=== PATIENT | female | born 1995 ===

== ENCOUNTER 2016-08-25 23:19 | Emergency (ER) | payer OTHER ==
[2016-08-26 00:59] VITALS: BMI 24.5
[2016-08-26 01:05] VITALS: TEMP 98.5
[2016-08-26] MEDS ORDERED: Sodium Chloride 0.9% 1,000 ML IV STA (01:23)
[2016-08-26 02:01] LABS: ADD MANUAL DIFF? NO
[2016-08-26 02:11] LABS: PH,URINE 6.5 (4.7-8.0); URINE BILIRUBIN MODERATE (NEGATIVE); URINE BLOOD LARGE (NEGATIVE); URINE GLUCOSE (UA) 250 mg/dL (NEGATIVE); URINE KETONE 15 mg/dL (NEGATIVE); URINE LEUKOCYTE ESTERASE MODERATE Leu/uL (NEGATIVE); URINE PROTEIN >=300 mg/dL (<30 mg/dL)
[2016-08-26 02:13] LABS: URINE APPEARANCE BLOODY (CLEAR); URINE COLOR DARK RED (YELLOW)
[2016-08-26 02:16] LABS: BASO # 0.01 K/mm3 (0.0-2.0); BASO % 0.2 % (0.0-3.0); EOS # 0.1 (0.0-0.7); EOS % 1.3 % (1.5-5.0); GRAN # 3.52 (1.4-6.5); GRAN % 56.9 % (50.0-68.0); HEMATOCRIT 26.3 % (36.0-48.0); LYMPH # 1.9 (1.2-3.4); LYMPH % 30.1 % (22.0-35.0); MEAN CELL VOLUME 80.2 fL (80.0-105.0); MEAN CORPUSCULAR HEMOGLOBIN 27.4 pg (25.0-35.0); MEAN CORPUSCULAR HGB CONC 34.2 g/dl (31.0-37.0); MEAN PLATELET VOLUME 9.2 fl (7.0-11.0); MONO # 0.7 (0.1-0.6); MONO % 11.5 % (1.0-6.0); PLATELET COUNT 252 10^3/uL (120.0-450.0); RED CELL DISTRIBUTION WIDTH 13.5 % (11.5-14.5); WHITE BLOOD COUNT 6.2 10^3/ul (4.5-11.0)
[2016-08-26 02:18] LABS: ALB/GLOB RATIO 1.2 (1.1-1.8); ALKALINE PHOSPHATASE 52 U/L (38-133); ALT/SGPT 25 U/L (7-56); AST/SGOT 30 U/L (15-39); BILIRUBIN,TOTAL 0.4 mg/dL (0.2-1.3); BLOOD UREA NITROGEN 15 mg/dL (7-21); CALCIUM 9.6 mg/dL (8.4-10.5); CARBON DIOXIDE 28 mmol/L (21-33); CHLORIDE 101 mmol/L (98-107); GFR AFRICAN-AMERICAN > 60; GLUCOSE,RANDOM 85 mg/dL (70-110); LIPASE 196 U/L (23-300); POTASSIUM 3.9 mmol/L (3.6-5.0); SODIUM 140 mmol/L (132-148); TOTAL PROTEIN 7.8 g/dL (5.8-8.3)
[2016-08-26 02:23] LABS: URINE RBC TNTC /hpf (0-2)
[2016-08-26 02:24] LABS: URINE EPITHELIAL CELLS 0 - 2 /hpf (0-5)
[2016-08-26 02:25] LABS: URINE BACTERIA MOD (NEG)
--- NOTE | 2016-08-26 02:35 | ED PDOC ---
Arrival/HPI - General Historian: Patient, Spouse - History of Present Illness Time/Duration: 1 week Symptom Onset: Gradual Symptom Course: Worsening Quality: Aching Severity Level: 5 Activities at Onset: Rest Context: Home <Samina Suazo - Last Filed: 08/26/16 02:55> <Abilio Krishnamurthy DO - Last Filed: 08/26/16 03:16> - General Chief Complaint: Medical Clearance Time Seen by Provider: 08/26/16 00:35 - History of Present Illness Narrative History of Present Illness (Text): 08/26/16 02:37 This is a 20Y Female with PMH PCOS who came in today for vaginal bleeding. She has been having heavy bleeding for the past few days. Her LMP was August 09 and lasted 3 days and was light. Her last period before that was in May. She does not take control and has been with one partner. The patient states she saw her food service manager last year for a pap smear and it was normal. She has abdominal pain, but denies fever, chills, CP, SOB, dysuria or hematuria. (Samina Suazo) Past Medical History - Provider Review Nursing Documentation Reviewed: Yes - Tetanus Immunization Tetanus Immunization: Unknown - Musculoskeletal/Rheumatological Hx Falls: Yes Hx Fractures: Yes (left Tibial [place], left ring finger) - Psychiatric Hx Substance Use: No - Surgical History Hx Orthopedic Surgery: Yes (left tibia) Other/Comment: Breast Implant, Lipposuction - Anesthesia Hx Anesthesia: Yes <Samina Suazo - Last Filed: 08/26/16 02:55> Family/Social History - Physician Review Nursing Documentation Reviewed: Yes Family/Social History: No Known Family HX Smoking Status: Never Smoked Hx Alcohol Use: No Hx Substance Use: No <Samina Suazo - Last Filed: 08/26/16 02:55> Allergies/Home Meds <Samina Suazo - Last Filed: 08/26/16 02:55> <Abilio Krishnamurthy DO - Last Filed: 08/26/16 03:16> Allergies/Adverse Reactions: Allergies No Known Allergies Allergy (Verified 08/26/16 00:58) Home Medications: Home Meds Medication Instructions Recorded Confirmed Metformin HCl [Glucophage] 850 mg PO DAILY 08/26/16 08/26/16 Review of Systems - Physician Review All systems were reviewed & negative as marked: Yes - Review of Systems Constitutional: Fatigue. absent: Weight Change, Fevers Eyes: Normal Respiratory: Normal. absent: SOB, Cough Cardiovascular: Normal. absent: Chest Pain, Palpitations, Edema Gastrointestinal: Abdominal Pain. absent: Nausea, Vomiting Genitourinary Female: Vaginal Bleeding. absent: Dysuria, Frequency, Hematuria Musculoskeletal: Normal Skin: Normal Neurological: Normal. absent: Headache, Dizziness <Samina Suazo - Last Filed: 08/26/16 02:55> Physical Exam Vital Signs Reviewed: Yes Temperature: Afebrile Blood Pressure: Normal Pulse: Regular Respiratory Rate: Normal Appearance: Positive for: Well-Appearing, Non-Toxic, Comfortable Pain Distress: None Mental Status: Positive for: Alert and Oriented X 3 - Systems Exam Head: Present: Atraumatic, Normocephalic Pupils: Present: PERRL Extroacular Muscles: Present: EOMI Conjunctiva: Present: Normal Mouth: Present: Moist Mucous Membranes Neck: Present: Normal Range of Motion Respiratory/Chest: Present: Clear to Auscultation, Good Air Exchange. No: Respiratory Distress, Accessory Muscle Use Cardiovascular: Present: Regular Rate and Rhythm, Normal S1, S2. No: Murmurs Abdomen: Present: Tenderness (suprapubic), Normal Bowel Sounds. No: Distention , Peritoneal Signs Upper Extremity: Present: Normal Inspection. No: Edema Lower Extremity: Present: Normal Inspection. No: Edema Neurological: Present: GCS=15, CN II-XII Intact, Speech Normal Skin: Present: Warm, Dry, Normal Color. No: Rashes Psychiatric: Present: Alert, Oriented x 3 <Samina Suazo - Last Filed: 08/26/16 02:55> <Abilio Krishnamurthy DO - Last Filed: 08/26/16 03:16> Vital Signs Temp Pulse Resp BP Pulse Ox 08/26/16 01:04 98.5 F 89 18 95/70 L 100 Medical Decision Making Re-evaluation Time: 02:45 Reassessment Condition: Unchanged - Lab Interpretations I have reviewed the lab results: Yes Interpretation: Abnormal lab values <Samina Suazo - Last Filed: 08/26/16 02:55> <Abilio Krishnamurthy DO - Last Filed: 08/26/16 03:16> ED Course and Treatment: 08/26/16 03:01 Impression: This is a 20Y with PMH of PCOS here for menorrhagia for the past few days. Her LMP was 2 weeks ago which lasted 3 days and was light. She has irregular periods. She last saw a food service manager 1 year ago. Differential Diagnosis: -- , UTI, dysfunctional uterine bleeding Plan: -- CBC, CMP, U/A, Urine culture -- Quantitative Hcg -- Reassess and disposition Prior Visits: Notes and results from previous visits were reviewed. Progress Note: Patient noted to have anemia and UTI. Quantitative Hcg negative. Discharge Instructions: Re-evaluation. Patient feels better. Discussed results and plan with patient who expresses understanding. All questions answered and there is agreement with the plan to discharge home with instructions. Patient stable for discharge. Return if symptoms persist or worsen. (Samina Suazo) 08/26/16 03:16 Patient seen and evaluated with resident. Agree with HPI, clinical findings, plan and treatment. Patient is a 20 year old female who presents to the emergency department complaining of vaginal bleeding for past few days. Patient also complains of mild abdominal pain. [facility] August 09. Will order labs, urine culture and Urinalysis. Patient noted to have UTI. Will discharge patient on Macrobid. Advised to present to emergency department for worsening symptoms, and follow up with OB/ Associate Dean Of Women within few days. (Abilio Krishnamurthy DO) - Lab Interpretations Lab Results: 08/26/16 01:20 08/26/16 01:20 Lab Results 08/26/16 01:20: Beta HCG, Quant < 2.39 08/26/16 01:20: Sodium 140, Potassium 3.9, Chloride 101, Carbon Dioxide 28, Anion Gap 15, BUN 15, Creatinine 0.6, Est GFR ( Amer) > 60, Est GFR (Non- Af Amer) > 60, Random Glucose 85, Calcium 9.6, Total Bilirubin 0.4, AST 30, ALT 25, Alkaline Phosphatase 52, Total Protein 7.8, Albumin 4.3, Globulin 3.5, Albumin/Globulin Ratio 1.2, Lipase 196 08/26/16 01:20: Urine Color Dark red, Urine Appearance Bloody, Urine pH 6.5, Ur Specific [place] 1.025, Urine Protein >=300 H, Urine Glucose (UA) 250 H, Urine Ketones 15 H, Urine Blood Large H, Urine Nitrate Positive H, Urine Bilirubin Moderate H, Urine Urobilinogen 4.0 H, Ur Leukocyte Esterase Moderate H, Urine RBC Tntc, Urine WBC 5 - 10, Ur Epithelial Cells 0 - 2, Urine Bacteria Mod 08/26/16 01:20: WBC 6.2 D, RBC 3.28 L, Hgb 9.0 L, Hct 26.3 L, MCV 80.2, MCH 27.4, MCHC 34.2, RDW 13.5, Plt Count 252, MPV 9.2, Gran % 56.9, Lymph % (Auto) 30.1, [place] % (Auto) 11.5 H, Eos % (Auto) 1.3 L, Baso % (Auto) 0.2, Gran # 3.52, Lymph # 1.9, [place] # 0.7 H, Eos # 0.1, Baso # 0.01 - Medication Orders Current Medication Orders: Discontinued Medications Famotidine (Pepcid) 20 mg IVP STAT STA Stop: 08/26/16 01:24 Sodium Chloride (Sodium Chloride 0.9%) 1,000 mls @ 1,000 mls/hr IV .Q1H STA Stop: 08/26/16 02:22 Ondansetron HCl (Zofran Inj) 4 mg IVP STAT STA Stop: 08/26/16 01:24 <Samina Suazo - Last Filed: 08/26/16 02:55> - PA / GRAIN ELEVATOR AGENT / Resident Statement DESTINEY has reviewed & agrees with the documentation as recorded. DESTINEY has examined the patient and agrees with the treatment plan. <Abilio Krishnamurthy DO - Last Filed: 08/26/16 03:16> - Scribe Statement Mara Santana Provider Scribe Attestation: All medical record entries made by the Scribe were at my direction and personally dictated by me. I have reviewed the chart and agree that the record accurately reflects my personal performance of the history, physical exam, medical decision making, and the department course for this patient. I have also personally directed, reviewed, and agree with the discharge instructions and disposition. (Abilio Krishnamurthy DO) Disposition/Present on Arrival - Present on Arrival Any Indicators Present on Arrival: No History of DVT/PE: No History of Uncontrolled Diabetes: No Urinary Catheter: No History of Decub. Ulcer: No History Surgical Site Infection Following: None - Disposition Have Diagnosis and Disposition been Completed?: Yes Disposition Time: 03:00 Patient Plan: Discharge <Samina Suazo - Last Filed: 08/26/16 02:55> <Abilio Krishnamurthy DO - Last Filed: 08/26/16 03:16> - Disposition Diagnosis: UTI (urinary tract infection), Dysfunctional uterine bleeding Disposition: HOME/ ROUTINE Condition: FAIR Discharge Instructions (ExitCare): Dysfunctional Uterine Bleeding (ED), Urinary Tract Infection in Women (DC) Print Language: LITHUANIAN Additional Instructions: Ms. Sims, thank you for letting us take care of you today. Your provider was Dr. Suazo. You were treated for UTI and dysfunctional uterine bleeding. The emergency medical care you received today was directed at your acute symptoms. If you were prescribed any medication, please fill it and take as directed. It may take several days for your symptoms to resolve. Return to the Emergency Department if your symptoms worsen, do not improve, or if you have any other problems. Please contact your doctor or call one of the physicians/clinics you have been referred to that are listed on the Patient Visit Information form that is included in your discharge packet. Bring any paperwork you were given at discharge with you along with any medications you are taking to your follow up visit. Our treatment cannot replace ongoing medical care by a primary care provider (PCP) outside of the emergency department. Thank you for allowing the [facility] team to be part of your care today. Please follow up with PMD and knowledge analyst within 1 week. Take iron pill daily. Use stool softener if constipated. Prescriptions: Ferrous Sulfate [Feosol] 325 mg PO DAILY #10 tab Nitrofurantoin Macrocrystals [Macrobid] 100 mg PO BID #14 cap Referrals: Raymundo Cunha, [Primary Care Provider] - Follow up with primary
[2016-08-26 03:19] VITALS: BP 112/74; PULSE 84; RESP 17; O2SAT 99
== END 2016-08-26 03:20 | disposition home or self-care (01) ==
LOC: ED 23:19
DX: N93.8 Other specified abnormal uterine and vaginal bleeding (principal); N39.0 Urinary tract infection, site not specified; E28.2 Polycystic ovarian syndrome

== ENCOUNTER 2016-09-07 03:27 | Emergency (ER) | payer OTHER ==
[2016-09-07 03:39] VITALS: BMI 22.6
--- NOTE | 2016-09-07 04:36 | ED PDOC ---
Arrival/HPI - General Chief Complaint: Back Pain Time Seen by Provider: 09/07/16 03:37 Historian: Patient - History of Present Illness Narrative History of Present Illness (Text): 09/07/16 04:35 Linda Sims is a 20 year old female who presents to the Emergency department complaining of right lower back pain since yesterday afternoon. Patient states she took Percocet she had left over from a previous surgery with some relief. Patient denies any dysuria, hematuria, urinary frequency, Patient also reports she some rectal discomfort secondary to hemorrhoid and applied over -the-counter topical ointment. Patient denies any saddle paresthesias, weakness in lower extremities, fever, chills, nausea, vomiting, diarrhea, headache, dizziness, or any other complaints. Time/Duration: Other (yesterday) Symptom Onset: Gradual Symptom Course: Unchanged Activities at Onset: Rest, Light Context: Home Past Medical History - Provider Review Nursing Documentation Reviewed: Yes - Tetanus Immunization Tetanus Immunization: Unknown - Musculoskeletal/Rheumatological Hx Falls: Yes Hx Fractures: Yes (left Tibial [place], left ring finger) - Psychiatric Hx Substance Use: No - Surgical History Hx Orthopedic Surgery: Yes (left tibia) Other/Comment: Breast Implant, Lipposuction - Anesthesia Hx Anesthesia: Yes Family/Social History - Physician Review Nursing Documentation Reviewed: Yes Family/Social History: No Known Family HX Smoking Status: Never Smoked Hx Alcohol Use: No Hx Substance Use: No Allergies/Home Meds Allergies/Adverse Reactions: Allergies No Known Allergies Allergy (Verified 08/26/16 00:58) Home Medications: Home Meds Medication Instructions Recorded Confirmed oxyCODONE/Acetaminophen [Percocet 1 tab PO Q4H PRN 09/07/16 09/07/16 5/325 mg Tab] Review of Systems - Physician Review All systems were reviewed & negative as marked: Yes - Review of Systems Constitutional: Normal. absent: Fevers Eyes: Normal ENT: Normal Respiratory: Normal. absent: SOB, Cough Cardiovascular: Normal. absent: Chest Pain Gastrointestinal: Normal. absent: Abdominal Pain, Diarrhea, Nausea, Vomiting Genitourinary Female: Other (+hemorrhoid) Musculoskeletal: Back Pain Skin: Normal. absent: Rash Neurological: Normal. absent: Headache, Dizziness Endocrine: Normal Hemo/Lymphatic: Normal Psychiatric: Normal Physical Exam Vital Signs Reviewed: Yes Vital Signs Temp Pulse Resp BP Pulse Ox 09/07/16 07:05 98 F 72 20 118/71 99 09/07/16 05:32 71 16 111/68 100 09/07/16 03:39 98.6 F 69 16 121/76 100 Temperature: Afebrile Blood Pressure: Normal Pulse: Regular Respiratory Rate: Normal Appearance: Positive for: Well-Appearing, Non-Toxic, Comfortable Pain Distress: None Mental Status: Positive for: Alert and Oriented X 3 - Systems Exam Head: Present: Atraumatic, Normocephalic Pupils: Present: PERRL Extroacular Muscles: Present: EOMI Conjunctiva: Present: Normal Mouth: Present: Moist Mucous Membranes Neck: Present: Normal Range of Motion Respiratory/Chest: Present: Clear to Auscultation, Good Air Exchange. No: Respiratory Distress, Accessory Muscle Use Cardiovascular: Present: Regular Rate and Rhythm, Normal S1, S2. No: Murmurs Abdomen: Present: Normal Bowel Sounds. No: Tenderness, Distention, Peritoneal Signs Rectal: Present: Hemorrhoids (Small, non-thrombosed hemorrhoid), Other (Scribe Randee present as clam digger) Back: Present: Normal Inspection. No: CVA Tenderness, Midline Tenderness, Paraspinal Tenderness Upper Extremity: Present: Normal Inspection. No: Cyanosis, Edema Lower Extremity: Present: Normal Inspection. No: Edema Neurological: Present: GCS=15, CN II-XII Intact, Speech Normal Skin: Present: Warm, Dry, Normal Color. No: Rashes Psychiatric: Present: Alert, Oriented x 3, Normal Insight, Normal Concentration Medical Decision Making ED Course and Treatment: 09/07/16 04:35 Impression: 20 year old female complaining of right lower back pain since yesterday. Plan: -- CT Abdomen and Pelvis -- Labs -- UA -- IV fluids -- Reassess and disposition Prior Visits: Notes and results from previous visits were review - Lab Interpretations Lab Results: 09/07/16 05:25 09/07/16 05:25 Lab Results 09/07/16 05:25: WBC 9.4 D, RBC 3.43 L, Hgb 9.1 L, Hct 28.2 L, MCV 82.2, MCH 26.5, MCHC 32.3, RDW 14.4, Plt Count 354, MPV 8.8 09/07/16 05:25: Sodium 138, Potassium 4.4, Chloride 105, Carbon Dioxide 26, Anion Gap 11, BUN 12, Creatinine 0.5, Est GFR ( Amer) > 60, Est GFR (Non- Af Amer) > 60, Random Glucose 96, Calcium 9.5, Total Bilirubin 0.3, AST 23, ALT 25, Alkaline Phosphatase 67, Total Protein 7.5, Albumin 4.5, Globulin 3.1, Albumin/Globulin Ratio 1.5 09/07/16 04:10: Urine Color Yellow, Urine Appearance Sl cloudy, Urine pH 6.0, Ur Specific [place] >= 1.030, Urine Protein 100 H, Urine Glucose (UA) Negative, Urine Ketones Negative, Urine Blood Large H, Urine Nitrate Negative, Urine Bilirubin Negative, Urine Urobilinogen 1.0 H, Ur Leukocyte Esterase Negative, Urine RBC 2 - 5, Urine WBC 0 - 2, Ur Epithelial Cells 3 - 4, Urine Bacteria Rare I have reviewed the lab results: Yes - RAD Interpretation Narrative RAD Interpretations (Text): 09/07/16 06:58 CT Abd/Pelvis-IMPRESSION: - 3 mm obstructing stone in the right proximal to mid ureter. - Otherwise, no evidence of significant acute process, allowing for motion artifact. - See above for remaining findings Radiology Orders: 09/07/16 05:23 ABD & PELVIS W/O PO OR IV CONT [CT] Stat Telemarketing Representative: Radiologist - Medication Orders Current Medication Orders: Discontinued Medications Sodium Chloride (Sodium Chloride 0.9%) 1,000 mls @ 999 mls/hr IV .Q1H1M STA Stop: 09/07/16 06:24 Last Admin: 09/07/16 05:33 Dose: 999 mls/hr - Scribe Statement The provider has reviewed the documentation as recorded by the Scribe Randee Olson All medical record entries made by the Scribe were at my direction and personally dictated by me. I have reviewed the chart and agree that the record accurately reflects my personal performance of the history, physical exam, medical decision making, and the department course for this patient. I have also personally directed, reviewed, and agree with the discharge instructions and disposition. Disposition/Present on Arrival - Present on Arrival Any Indicators Present on Arrival: No History of DVT/PE: No History of Uncontrolled Diabetes: No Urinary Catheter: No History of Decub. Ulcer: No History Surgical Site Infection Following: None - Disposition Have Diagnosis and Disposition been Completed?: Yes Diagnosis: Nephrolithiasis, Renal colic Disposition: HOME/ ROUTINE Disposition Time: 07:03 Patient Plan: Discharge Condition: STABLE Discharge Instructions (ExitCare): Kidney Stones (ED), Renal Colic (ED) Print Language: KINYARWANDA Additional Instructions: Drink plenty of fluids/Take meds as prescribed/follow up with the urologist this week/any recurrent persistent pain return to the emergency room Prescriptions: oxyCODONE/Acetaminophen [Percocet 5/325 mg Tab] 1 ea PO Q6 PRN #16 tab PRN Reason: Pain, Moderate (4-7) Referrals: Walter Aquino MD [Staff Provider] - Follow up with primary
[2016-09-07 04:40] LABS: URINE BILIRUBIN NEGATIVE (NEGATIVE); URINE BLOOD LARGE (NEGATIVE); URINE GLUCOSE (UA) NEGATIVE (NEGATIVE); URINE KETONE NEGATIVE (NEGATIVE); URINE LEUKOCYTE ESTERASE NEGATIVE Leu/uL (NEGATIVE); URINE PROTEIN 100 mg/dL (<30 mg/dL)
[2016-09-07 04:59] LABS: URINE APPEARANCE SL CLOUDY (CLEAR); URINE COLOR YELLOW (YELLOW)
[2016-09-07 05:11] LABS: URINE BACTERIA RARE (NEG); URINE WBC 0 - 2 /hpf (0-6)
[2016-09-07] MEDS ORDERED: Sodium Chloride 0.9% 1,000 ML IV STA (05:24)
[2016-09-07 05:40] LABS: HEMATOCRIT 28.2 % (36.0-48.0); MEAN CELL VOLUME 82.2 fL (80.0-105.0); MEAN CORPUSCULAR HEMOGLOBIN 26.5 pg (25.0-35.0); MEAN CORPUSCULAR HGB CONC 32.3 g/dl (31.0-37.0); MEAN PLATELET VOLUME 8.8 fl (7.0-11.0); RED CELL DISTRIBUTION WIDTH 14.4 % (11.5-14.5); WHITE BLOOD COUNT 9.4 10^3/ul (4.5-11.0)
[2016-09-07 05:53] LABS: ALB/GLOB RATIO 1.5 (1.1-1.8); ALKALINE PHOSPHATASE 67 U/L (38-133); ALT/SGPT 25 U/L (7-56); AST/SGOT 23 U/L (15-39); BILIRUBIN,TOTAL 0.3 mg/dL (0.2-1.3); BLOOD UREA NITROGEN 12 mg/dL (7-21); CALCIUM 9.5 mg/dL (8.4-10.5); CARBON DIOXIDE 26 mmol/L (21-33); CHLORIDE 105 mmol/L (95-110); GFR AFRICAN-AMERICAN > 60; GLUCOSE,RANDOM 96 mg/dL (70-110); POTASSIUM 4.4 mmol/L (3.6-5.0); SODIUM 138 mmol/L (132-148); TOTAL PROTEIN 7.5 g/dL (5.8-8.3)
--- NOTE | 2016-09-07 06:34 | CT ---
EXAM: CT Abdomen and Pelvis Without Intravenous Contrast CLINICAL HISTORY: 20 years old, female; Pain; Abdominal pain; Flank; Right; Additional info: Right flank pain TECHNIQUE: Axial computed tomography images of the abdomen and pelvis without intravenous contrast. This CT exam was performed using one or more of the following dose reduction techniques: automated exposure control, adjustment of the mA and/or kV according to patient size, and/or use of iterative reconstruction technique. Coronal and sagittal reformatted images were created and reviewed. EXAM DATE/TIME: 09/07/2016 5:23 AM COMPARISON: No relevant prior studies available. FINDINGS: LIMITATIONS: Exam is limited by mild to moderate streak/motion artifact. LOWER THORAX: No infiltrate seen in the lung bases. ABDOMEN: LIVER: No acute abnormality of the liver identified. GALLBLADDER AND BILE DUCTS: No CT evidence of acute cholecystitis. No evidence of significant biliary ductal dilatation. PANCREAS: No CT evidence of acute pancreatitis. SPLEEN: No acute abnormality of the spleen identified. ADRENALS: No acute abnormality of the adrenal glands identified. KIDNEYS AND URETERS: 3 mm obstructing stone in the right proximal to mid ureter, image 44/series [id number], causing mild right hydroureteronephrosis. Tiny, nonobstructing right renal stone. STOMACH AND BOWEL: No acute abnormality of the bowel is identified, allowing for motion artifact. No evidence of bowel obstruction. No evidence of duran colitis. APPENDIX: Appendix is seen, and is within normal limits in appearance. PELVIS: BLADDER: No acute abnormality of the bladder identified. REPRODUCTIVE:No acute abnormality of the reproductive organs is seen. No acute abnormality of the uterus identified. No evidence of large adnexal masses. ABDOMEN and PELVIS: INTRAPERITONEAL SPACE: Small amount of free fluid in the cul-de-sac. This is most likely physiologic in nature. No evidence of free intraperitoneal air and. BONES/JOINTS: No acute fractures or other acute bony abnormality noted. SOFT TISSUES: Findings in the abdominal wall soft tissues diffusely which are most likely due to postsurgical scarring, possibly from prior abdominoplasty. Recommend clinical correlation. VASCULATURE: No evidence of abdominal aortic aneurysm. No evidence of periaortic hemorrhage. LYMPH NODES: No evidence of diffuse lymphadenopathy. IMPRESSION: - 3 mm obstructing stone in the right proximal to mid ureter. - Otherwise, no evidence of significant acute process, allowing for motion artifact. - See above for remaining findings.
[2016-09-07 07:06] VITALS: BP 118/71; PULSE 72; RESP 20; TEMP 98; O2SAT 99
== END 2016-09-07 07:08 | disposition home or self-care (01) ==
LOC: ED 03:27
DX: M54.5 Low back pain (principal); N23 Unspecified renal colic; N20.0 Calculus of kidney
CPT/HCPCS: 74176; 80053; 81001; 85027; 87086; 96360; 99283; J7040

== ENCOUNTER 2016-11-11 21:22 | Emergency (ER) | payer OTHER ==
[2016-11-11 22:11] VITALS: BMI 23.9
[2016-11-11 22:15] VITALS: BP 107/67; PULSE 96; RESP 15; TEMP 99.6; O2SAT 100
[2016-11-11] MEDS ORDERED: Sodium Chloride 0.9% 1,000 ML IV STA (23:01)
--- NOTE | 2016-11-11 23:21 | ED PDOC ---
Arrival/HPI - General Chief Complaint: Abdominal Pain Time Seen by Provider: 11/11/16 22:21 Historian: Patient - History of Present Illness Narrative History of Present Illness (Text): 11/11/16 23:17 A 21 year old female presents to the emergency department complaining of left sided abdominal pain for the past two weeks. Patient reports taking Tylenol. Reports nausea and watery, non-bloody diarrhea two times a day for the past two weeks and subjective fever since yesterday but denies any other complaints at this time. Denies any recent travels. Symptom Onset: Sudden Symptom Course: Unchanged Activities at Onset: Rest Context: Home Past Medical History - Provider Review Nursing Documentation Reviewed: Yes - Tetanus Immunization Tetanus Immunization: Unknown - Cardiac Hx Cardiac Disorders: No - Pulmonary Hx Respiratory Disorders: No - Neurological Hx Neurological Disorder: No - HEENT Hx HEENT Disorder: No - Renal Hx Renal Disorder: No - Endocrine/Metabolic Hx Endocrine Disorders: No - Hematological/Oncological Hx Blood Disorders: No - Integumentary Hx Dermatological Disorder: No - Musculoskeletal/Rheumatological Hx Falls: Yes Hx Fractures: Yes (left Tibial [place], left ring finger) - Gastrointestinal Hx Gastrointestinal Disorders: No - Genitourinary/Gynecological Other/Comment: polycystic ovary - Psychiatric Hx Psychophysiologic Disorder: No Hx Substance Use: No - Surgical History Hx Orthopedic Surgery: Yes (left tibia) Other/Comment: Breast Implant, Lipposuction - Anesthesia Hx Anesthesia: Yes Hx Anesthesia Reactions: No Hx Malignant Hyperthermia: No Family/Social History - Physician Review Nursing Documentation Reviewed: Yes Family/Social History: No Known Family HX Smoking Status: Never Smoked Hx Alcohol Use: No Hx Substance Use: No Allergies/Home Meds Allergies/Adverse Reactions: Allergies No Known Allergies Allergy (Verified 11/11/16 22:11) Home Medications: Home Meds Medication Instructions Recorded Confirmed metFORMIN [glucOPHAGE] 500 mg PO DAILY 11/11/16 11/11/16 Review of Systems - Physician Review All systems were reviewed & negative as marked: Yes - Review of Systems Constitutional: Fevers (subjective) Gastrointestinal: Abdominal Pain, Diarrhea, Nausea. absent: Vomiting Physical Exam Vital Signs Reviewed: Yes Vital Signs Temp Pulse Resp BP Pulse Ox 11/11/16 22:14 99.6 F 96 H 15 107/67 100 Temperature: Afebrile Blood Pressure: Normal Pulse: Regular Respiratory Rate: Normal Appearance: Positive for: Well-Appearing, Non-Toxic, Comfortable Pain Distress: None Mental Status: Positive for: Alert and Oriented X 3 - Systems Exam Head: Present: Atraumatic, Normocephalic Pupils: Present: PERRL Extroacular Muscles: Present: EOMI Conjunctiva: Present: Normal Mouth: Present: Moist Mucous Membranes Neck: Present: Normal Range of Motion Respiratory/Chest: Present: Clear to Auscultation, Good Air Exchange. No: Respiratory Distress, Accessory Muscle Use Cardiovascular: Present: Regular Rate and Rhythm, Normal S1, S2. No: Murmurs Abdomen: Present: Tenderness (left sided), Normal Bowel Sounds. No: Distention , Peritoneal Signs Back: Present: Normal Inspection Upper Extremity: Present: Normal Inspection. No: Cyanosis, Edema Lower Extremity: Present: Normal Inspection. No: Edema Neurological: Present: GCS=15, CN II-XII Intact, Speech Normal Skin: Present: Warm, Dry, Normal Color. No: Rashes Psychiatric: Present: Alert, Oriented x 3, Normal Insight, Normal Concentration Medical Decision Making ED Course and Treatment: 11/12/16 01:22 the pt reports feeing better and says her pain is completely gone. she is sitting up, appears well, no distress. I disc w her results, plan for rx, f/u, and rtr. she v/u and agrees w plan. all questions and concerned addressed at this time. - Lab Interpretations Lab Results: 11/12/16 00:05 11/12/16 00:05 Lab Results 11/12/16 00:05: WBC 10.4, RBC 4.62, Hgb 10.4 L, Hct 33.3 L, MCV 72.1 L, MCH 22.5 L, MCHC 31.2, RDW 16.4 H, Plt Count 216, MPV 8.9, Gran % 80.3 H, Lymph % ( Auto) 10.7 L, Bartholomew % (Auto) 8.7 H, Eos % (Auto) 0.2 L, Baso % (Auto) 0.1, Gran # 8.36 H, Lymph # 1.1 L, Bartholomew # 0.9 H, Eos # 0.0, Baso # 0.01 11/12/16 00:05: Sodium 142, Potassium 3.8, Chloride 103, Carbon Dioxide 25, Anion Gap 18, BUN 13, Creatinine 0.6, Est GFR ( Amer) > 60, Est GFR (Non- Af Amer) > 60, Random Glucose 78, Calcium 10.0, Total Bilirubin 0.6, AST 33, ALT 22, Alkaline Phosphatase 100, Total Protein 9.1 H, Albumin 5.1 H, Globulin 4.0, Albumin/Globulin Ratio 1.3, Lipase 160 11/11/16 23:05: Urine Color Yellow, Urine Appearance Clear, Urine pH 6.0, Ur Specific [place] >= 1.030, Urine Protein Negative, Urine Glucose (UA) Negative, Urine Ketones 40 H, Urine Blood Trace-lysed H, Urine Nitrate Negative, Urine Bilirubin Negative, Urine Urobilinogen 0.2, Ur Leukocyte Esterase Negative, Urine RBC 1 - 3, Urine WBC 1 - 3, Ur Epithelial Cells 6 - 8, Urine HCG, Qual Negative I have reviewed the lab results: Yes - Medication Orders Current Medication Orders: Discontinued Medications Sodium Chloride (Sodium Chloride 0.9%) 1,000 mls @ 999 mls/hr IV .Q1H1M STA Stop: 11/12/16 00:01 Last Admin: 11/12/16 00:08 Dose: 999 mls/hr Ketorolac Tromethamine (Toradol) 10 mg IVP STAT STA Stop: 11/11/16 23:02 Last Admin: 11/12/16 00:08 Dose: 10 mg Ondansetron HCl (Zofran Inj) 4 mg IVP ONCE ONE Stop: 11/11/16 23:02 Last Admin: 11/12/16 00:08 Dose: 4 mg - Scribe Statement The provider has reviewed the documentation as recorded by the Lillie Ashford Provider Scribe Attestation: All medical record entries made by the Lillie were at my direction and personally dictated by me. I have reviewed the chart and agree that the record accurately reflects my personal performance of the history, physical exam, medical decision making, and the department course for this patient. I have also personally directed, reviewed, and agree with the discharge instructions and disposition. Disposition/Present on Arrival - Present on Arrival Any Indicators Present on Arrival: No History of DVT/PE: No History of Uncontrolled Diabetes: No Urinary Catheter: No History of Decub. Ulcer: No History Surgical Site Infection Following: None - Disposition Have Diagnosis and Disposition been Completed?: Yes Diagnosis: Diarrhea Disposition: HOME/ ROUTINE Disposition Time: 01:23 Condition: IMPROVED Forms: [employer] (Citizen [place])
[2016-11-11 23:32] LABS: URINE BILIRUBIN NEGATIVE (NEGATIVE); URINE BLOOD TRACE-LYSED (NEGATIVE); URINE GLUCOSE (UA) NEGATIVE (NEGATIVE); URINE LEUKOCYTE ESTERASE NEGATIVE Leu/uL (NEGATIVE); URINE NITRATE NEGATIVE (NEGATIVE); URINE PROTEIN NEGATIVE mg/dL (<30 mg/dL); URINE UROBILINOGEN 0.2 E.U./dL (<1 E.U./dL)
[2016-11-12 00:16] LABS: URINE APPEARANCE CLEAR (CLEAR); URINE COLOR YELLOW (YELLOW)
[2016-11-12 00:17] LABS: HCG,QUALITATIVE URINE NEGATIVE (NEGATIVE)
[2016-11-12 00:22] LABS: BASO # 0.01 K/mm3 (0.0-2.0); BASO % 0.1 % (0.0-3.0); EOS % 0.2 % (1.5-5.0); GRAN # 8.36 (1.4-6.5); GRAN % 80.3 % (50.0-68.0); HEMOGLOBIN 10.4 gm/dL (12.0-16.0); LYMPH # 1.1 (1.2-3.4); LYMPH % 10.7 % (22.0-35.0); MEAN CELL VOLUME 72.1 fL (80.0-105.0); MEAN CORPUSCULAR HEMOGLOBIN 22.5 pg (25.0-35.0); MEAN CORPUSCULAR HGB CONC 31.2 g/dl (31.0-37.0); MEAN PLATELET VOLUME 8.9 fl (7.0-11.0); MONO # 0.9 (0.1-0.6); MONO % 8.7 % (1.0-6.0); PLATELET COUNT 216 10^3/uL (120.0-450.0); RBC 4.62 10^6/uL (3.5-6.1); RED CELL DISTRIBUTION WIDTH 16.4 % (11.5-14.5); WHITE BLOOD COUNT 10.4 10^3/ul (4.5-11.0)
[2016-11-12 00:37] LABS: ALB/GLOB RATIO 1.3 (1.1-1.8); ALBUMIN 5.1 g/dL (3.0-4.8); AST/SGOT 33 U/L (15-39); BLOOD UREA NITROGEN 13 mg/dL (7-21); GFR AFRICAN-AMERICAN > 60; GFR NON-AFRICAN AMERICAN > 60
[2016-11-12 01:02] LABS: ALT/SGPT 22 U/L (7-56); LIPASE 160 U/L (23-300)
== END 2016-11-12 01:30 | disposition home or self-care (01) ==
LOC: ED 21:22
DX: R19.7 Diarrhea, unspecified (principal)
CPT/HCPCS: 80053; 81001; 83690; 84703; 85025; 96361; 96374; 96375; 99283; J1885; J2405; J7040

== ENCOUNTER 2017-05-12 17:53 | Emergency (ER) | payer OTHER ==
[2017-05-12 17:53] VITALS: BMI 23.9
--- NOTE | 2017-05-12 18:08 | ED PDOC ---
"Arrival/HPI - General Time Seen by Provider: 05/12/17 18:07 Historian: Patient - History of Present Illness Narrative History of Present Illness (Text): 05/12/17 18:08 21 y/o female, pmh including renal stone/polycystitis ovarian syndome, nkda, c/ o bilateral breast pain x 2 weeks with no fall or trauma. Pt. stated that she has pain when touching the both breast, no nipple discharge, not breast feeding , had implant in [facility] [employer] about 3.5 years ago, no fever or chills, no night sweat, no other medical or psychological complaints. Past Medical History - Provider Review Nursing Documentation Reviewed: Yes - Tetanus Immunization Tetanus Immunization: Unknown - Cardiac Hx Cardiac Disorders: No - Pulmonary Hx Respiratory Disorders: No - Neurological Hx Neurological Disorder: No - HEENT Hx HEENT Disorder: No - Renal Hx Renal Disorder: No - Endocrine/Metabolic Hx Endocrine Disorders: No - Hematological/Oncological Hx Blood Disorders: No - Integumentary Hx Dermatological Disorder: No - Musculoskeletal/Rheumatological Hx Falls: Yes Hx Fractures: Yes (left Tibial [place], left ring finger) - Gastrointestinal Hx Gastrointestinal Disorders: No - Genitourinary/Gynecological Other/Comment: polycystic ovary - Psychiatric Hx Psychophysiologic Disorder: No Hx Substance Use: No - Surgical History Hx Orthopedic Surgery: Yes (left tibia) Other/Comment: Breast Implant, Lipposuction - Anesthesia Hx Anesthesia: Yes Hx Anesthesia Reactions: No Hx Malignant Hyperthermia: No Family/Social History - Physician Review Nursing Documentation Reviewed: Yes Family/Social History: Unknown Family HX Smoking Status: Never Smoked Hx Alcohol Use: No Hx Substance Use: No Allergies/Home Meds Allergies/Adverse Reactions: Allergies No Known Allergies Allergy (Verified 05/12/17 18:02) Review of Systems - Review of Systems Constitutional: absent: Fatigue, Fevers Eyes: absent: Vision Changes ENT: absent: Hearing Changes Respiratory: absent: SOB, Cough Cardiovascular: absent: Chest Pain Gastrointestinal: absent: Abdominal Pain, Nausea, Vomiting Musculoskeletal: absent: Arthralgias, Back Pain Skin: absent: Rash, Pruritis Neurological: absent: Headache, Dizziness Psychiatric: absent: Anxiety, Depression, Suicidal Ideation Physical Exam Vital Signs Reviewed: Yes Vital Signs Temp Pulse Resp BP Pulse Ox 05/12/17 18:05 98.7 F 80 18 114/78 100 Temperature: Afebrile Blood Pressure: Normal Pulse: Regular Respiratory Rate: Normal Appearance: Positive for: Well-Appearing, Non-Toxic, Comfortable Pain Distress: Mild Mental Status: Positive for: Alert and Oriented X 3 - Systems Exam Head: Present: Atraumatic, Normocephalic Pupils: Present: PERRL Extroacular Muscles: Present: EOMI Conjunctiva: Present: Normal Mouth: Present: Moist Mucous Membranes Pharnyx: No: ERYTHEMA, EXUDATE, TONSILS ENLARGED Nose (Internal): Present: Normal Inspection, No Active Bleeding. No: Rhinorrhea Neck: Present: Normal Range of Motion Respiratory/Chest: Present: Clear to Auscultation, Good Air Exchange. No: Respiratory Distress, Accessory Muscle Use Cardiovascular: Present: Regular Rate and Rhythm, Normal S1, S2. No: Murmurs Abdomen: Present: Normal Bowel Sounds. No: Tenderness, Distention, Peritoneal Signs Breast/Axillary: Present: Other (No nipple inversion. 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 No: Axillary Lymphad, Discoloration, Erythema, Fluctuance, Masses, Nipple Discharge , Swelling, Symmetrical Back: Present: Normal Inspection Upper Extremity: Present: Normal Inspection. No: Cyanosis, Edema Lower Extremity: Present: Normal Inspection. No: Edema Neurological: Present: GCS=15, CN II-XII Intact, Speech Normal Skin: Present: Warm, Dry, Normal Color. No: Rashes Psychiatric: Present: Alert, Oriented x 3, Normal Insight, Normal Concentration Medical Decision Making ED Course and Treatment: 05/12/17 18:22 -Breast sonogram -Toradol IM -Observe and reassess 05/13/17 00:18 -Pain resolved. -Bilateral breast sonogram show no signs of malignancy -Pain resolved, advised to have outpatient obgyn and pmd follow up -Discharge home with naproxen, bed rest, follow up with your own pmd and obgyn within 2 days, return to the ER for any new or worsening signs or symptoms. - RAD Interpretation Radiology Orders: 05/12/17 18:19 BREAST BILATERAL [US] Stat FINDINGS: Solid nodules: None. Cystic masses: None. Architectural distortion: None. Acoustical shadowing: None. Skin thickening: None. Axillary adenopathy: None. Other findings: Implant. IMPRESSION: No sonographic evidence of malignancy. EXAM: US Left Breast, Complete CLINICAL HISTORY: 21 years old, female; Pain; Breast pain; Bilateral; Patient HX: Pt has b/l breast implants; Additional info: Bilateral breast pain x 2weeks BRENT BULLOCK | Final Radiology Report CONFIDENTIALITY STATEMENT This report is intended only for use by the referring physician, and only in accordance with law. If you received this in error, call [phone]. Page 2 of 2 TECHNIQUE: Complete real time ultrasound of all four quadrants of the left breast and the retroareolar region, including ultrasound of the axilla when performed. COMPARISON: No relevant prior studies available. FINDINGS: Solid nodules: None. Cystic masses: None. Architectural distortion: None. Acoustical shadowing: None. Skin thickening: None. Axillary adenopathy: None. Other findings: Implant. IMPRESSION: No sonographic evidence of malignancy. Thank you for allowing us to participate in the care of your patient. Dictated and Authenticated by: Alexis Anderson MD 05/13/2017 12:15 AM Eastern Time ([place] & [place]) Fitness Coordinator: Radiologist - Medication Orders Current Medication Orders: Discontinued Medications Ketorolac Tromethamine (Toradol) 60 mg IM STAT STA Stop: 05/12/17 18:55 Last Admin: 05/12/17 19:34 Dose: 60 mg MAR Pain Assessment Document 05/12/17 19:34 SS (Rec: 05/12/17 19:34 SS [id number]) Pain Reassessment Is this a pain reassessment? No Sleep Is patient sleeping during reassessment? No Presence of Pain Presence of Pain Yes Location Pain Location Body Site Breast IM Administration Charges Document 05/12/17 19:34 SS (Rec: 05/12/17 19:34 SS [id number]) Charges for Administration # of IM Administrations 1 - PA / ACID CHANGER / Resident Statement MD/DO has reviewed & agrees with the documentation as recorded. Disposition/Present on Arrival - Present on Arrival Any Indicators Present on Arrival: No History of DVT/PE: No History of Uncontrolled Diabetes: No Urinary Catheter: No History of Decub. Ulcer: No History Surgical Site Infection Following: None - Disposition Have Diagnosis and Disposition been Completed?: Yes Diagnosis: Breast pain Disposition: HOME/ ROUTINE Disposition Time: 00:19 Patient Plan: Discharge Condition: IMPROVED Discharge Instructions (ExitCare): Breast Care for the Non-breast Feeding Woman (ED) Print Language: HEBREW Additional Instructions: -Discharge home with naproxen, bed rest, follow up with your own pmd and obgyn within 2 days, return to the ER for any new or worsening signs or symptoms. Prescriptions: Naproxen 500 mg PO BID PRN #20 tab PRN Reason: Other Referrals: Salvatore Dey Jr., MD [Primary Care Provider] - Follow up with primary Valorie Zavala MD [Medical Doctor] - Follow up with primary Forms: WORK NOTE"
[2017-05-12 18:10] VITALS: BP 114/78; PULSE 80; RESP 18; TEMP 98.7; O2SAT 100
--- NOTE | 2017-05-13 00:15 | US ---
EXAM: US Right Breast, Complete CLINICAL HISTORY: 21 years old, female; Pain; Breast pain; Bilateral; Patient HX: Pt has b/l breast implants; Additional info: Bilateral breast pain x 2weeks TECHNIQUE: Complete real time ultrasound of all four quadrants of the right breast and the retroareolar region, including ultrasound of the axilla when performed. COMPARISON: No relevant prior studies available. FINDINGS: Solid nodules: None. Cystic masses: None. Architectural distortion: None. Acoustical shadowing: None. Skin thickening: None. Axillary adenopathy: None. Other findings: Implant. IMPRESSION: No sonographic evidence of malignancy. EXAM: US Left Breast, Complete CLINICAL HISTORY: 21 years old, female; Pain; Breast pain; Bilateral; Patient HX: Pt has b/l breast implants; Additional info: Bilateral breast pain x 2weeks TECHNIQUE: Complete real time ultrasound of all four quadrants of the left breast and the retroareolar region, including ultrasound of the axilla when performed. COMPARISON: No relevant prior studies available. FINDINGS: Solid nodules: None. Cystic masses: None. Architectural distortion: None. Acoustical shadowing: None. Skin thickening: None. Axillary adenopathy: None. Other findings: Implant.
== END 2017-05-13 00:33 | disposition home or self-care (01) ==
LOC: ED 17:53
DX: N64.4 Mastodynia (principal)
CPT/HCPCS: 76641; 96372; 99283; J1885

== ENCOUNTER 2018-05-03 13:18 | Outpatient (CLI) | payer OTHER | END 2018-05-03 13:19 | disposition home or self-care (01) | LOC: LAB 13:18 ==

== ENCOUNTER 2018-07-26 17:24 | Emergency (ER) | payer OTHER ==
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
[2018-07-26 17:50] VITALS: BMI 23.8
[2018-07-26 17:52] VITALS: BP 101/70; PULSE 76; RESP 18; TEMP 98.5; O2SAT 100
[2018-07-26 18:54] LABS: BASO # 0.01 K/mm3 (0.0-2.0); BASO % 0.2 % (0.0-3.0); EOS # 0.1 (0.0-0.7); EOS % 1.8 % (1.5-5.0); HEMOGLOBIN 10.5 g/dL (12.0-16.0); LYMPH # 2.3 (1.2-3.4); LYMPH % 34.9 % (22.0-35.0); MEAN CELL VOLUME 82.4 fl (80.0-105.0); MEAN CORPUSCULAR HEMOGLOBIN 26.9 pg (25.0-35.0); MEAN CORPUSCULAR HGB CONC 32.6 g/dl (31.0-37.0); MEAN PLATELET VOLUME 9.4 fl (7.0-11.0); MONO # 0.5 (0.1-0.6); MONO % 6.8 % (1.0-6.0); RBC 3.91 10^6/uL (3.5-6.1); RED CELL DISTRIBUTION WIDTH 13.4 % (11.5-14.5); WHITE BLOOD COUNT 6.7 10^3/uL (4.5-11.0)
[2018-07-26 18:59] LABS: ALB/GLOB RATIO 1.3 (1.1-1.8); ALBUMIN 4.5 g/dL (3.0-4.8); ALT/SGPT 13 U/L (7-56); AST/SGOT 34 U/L (14-36); BLOOD UREA NITROGEN 16 mg/dL (7-21); CALCIUM 9.5 mg/dL (8.4-10.5); GFR NON-AFRICAN AMERICAN > 60
== END 2018-07-26 20:00 | disposition home or self-care (01) ==
LOC: ED 17:24
DX: N93.8 Other specified abnormal uterine and vaginal bleeding (principal)

== ENCOUNTER 2018-07-27 17:29 | Emergency (ER) | payer SELFPAY ==
[2018-07-27 17:29] VITALS: BMI 23.8
--- NOTE | 2018-07-27 18:23 | ED PDOC ---
Arrival/HPI - General Chief Complaint: Female Genitourinary Time Seen by Provider: 07/27/18 17:30 Historian: Patient - History of Present Illness Narrative History of Present Illness (Text): 07/27/18 18:18 A 22 year old female, whose past medical history includes PCOS, presents to the emergency department with a complaint of 3 day duration heavy vaginal bleeding. The patient notes that she was feeling dizzy and experiencing a headache today, which prompted her to come to the emergency department for further evaluation. the patient notes that she took Advil for her pain with minimal improvement. She notes that the bleeding is so heavy that it seeps through her pants. She denies fevers, chills, chest pain, shortness of breath, dyspnea on exertion, cough, abdominal pain, nausea, vomiting, diarrhea, back pain, neck pain, urinary/bowel changes, or any other complaint. PMD: None Time/Duration: Other (3 days) Symptom Onset: Sudden Symptom Course: Unchanged Activities at Onset: Rest, Light Context: Home Past Medical History - Provider Review Nursing Documentation Reviewed: Yes - Infectious Disease Hx of Infectious Diseases: None - Tetanus Immunization Tetanus Immunization: Unknown - Cardiac Hx Cardiac Disorders: No - Pulmonary Hx Respiratory Disorders: No - Neurological Hx Neurological Disorder: No - HEENT Hx HEENT Disorder: No - Renal Hx Renal Disorder: No - Endocrine/Metabolic Hx Endocrine Disorders: No - Hematological/Oncological Hx Blood Disorders: No - Integumentary Hx Dermatological Disorder: No - Musculoskeletal/Rheumatological Hx Falls: Yes Hx Fractures: Yes (left Tibial [place], left ring finger) - Gastrointestinal Hx Gastrointestinal Disorders: No - Genitourinary/Gynecological Other/Comment: polycystic ovary - Psychiatric Hx Psychophysiologic Disorder: No Hx Substance Use: No - Surgical History Hx Orthopedic Surgery: Yes (left tibia) Other/Comment: Breast Implant, Lipposuction - Anesthesia Hx Anesthesia: Yes Hx Anesthesia Reactions: No Hx Malignant Hyperthermia: No Family/Social History - Physician Review Nursing Documentation Reviewed: Yes Family/Social History: No Known Family HX Smoking Status: Never Smoked Hx Alcohol Use: No Hx Substance Use: No Allergies/Home Meds Allergies/Adverse Reactions: Allergies No Known Allergies Allergy (Verified 05/12/17 18:02) Review of Systems - Physician Review All systems were reviewed & negative as marked: Yes - Review of Systems Constitutional: absent: Fevers Respiratory: absent: SOB, Cough Cardiovascular: absent: Chest Pain, JACOBS Gastrointestinal: absent: Abdominal Pain, Stool Changes, Diarrhea, Nausea, Vomiting Genitourinary Female: Vaginal Bleeding. absent: Urine Output Changes Musculoskeletal: absent: Back Pain, Neck Pain Neurological: Headache, Dizziness Physical Exam Appearance: Positive for: Well-Appearing, Non-Toxic, Comfortable Pain Distress: None Mental Status: Positive for: Alert and Oriented X 3 - Systems Exam Head: Present: Atraumatic, Normocephalic Pupils: Present: PERRL Extroacular Muscles: Present: EOMI Conjunctiva: Present: Normal Mouth: Present: Moist Mucous Membranes Neck: Present: Normal Range of Motion Respiratory/Chest: Present: Clear to Auscultation, Good Air Exchange. No: Respiratory Distress, Accessory Muscle Use Cardiovascular: Present: Regular Rate and Rhythm, Normal S1, S2. No: Murmurs Abdomen: No: Tenderness, Distention, Peritoneal Signs Back: Present: Normal Inspection Upper Extremity: Present: Normal Inspection. No: Cyanosis, Edema Lower Extremity: Present: Normal Inspection. No: Edema Neurological: Present: GCS=15, CN II-XII Intact, Speech Normal Skin: Present: Warm, Dry, Normal Color. No: Rashes Psychiatric: Present: Alert, Oriented x 3, Normal Insight, Normal Concentration Medical Decision Making ED Course and Treatment: 07/27/18 18:24 Impression: A 22 year old female presents to the emergency department with a complaint of 3 day duration vaginal bleeding, headache, and dizziness. Plan: -- Transvaginal Ultrasound -- Urinalysis -- Labs -- Toradol -- Reassess and disposition Prior Visits: Notes and results from previous visits were reviewed. Progress Notes: - Lab Interpretations I have reviewed the lab results: Yes - Scribe Statement The provider has reviewed the documentation as recorded by the Lillie Washburn Provider Scribe Attestation: All medical record entries made by the Scribe were at my direction and personally dictated by me. I have reviewed the chart and agree that the record accurately reflects my personal performance of the history, physical exam, medical decision making, and the department course for this patient. I have also personally directed, reviewed, and agree with the discharge instructions and disposition. Disposition/Present on Arrival - Present on Arrival History of DVT/PE: No History of Uncontrolled Diabetes: No Urinary Catheter: No History of Decub. Ulcer: No History Surgical Site Infection Following: None - Disposition Forms: [employer] (Welsh)
[2018-07-27 19:02] LABS: URINE BILIRUBIN NEGATIVE (NEGATIVE); URINE BLOOD LARGE (NEGATIVE); URINE COLOR RED (YELLOW); URINE GLUCOSE (UA) NEGATIVE (NEGATIVE); URINE LEUKOCYTE ESTERASE NEGATIVE Leu/uL (NEGATIVE); URINE PROTEIN >=300 mg/dL (<30 mg/dL)
[2018-07-27 19:03] LABS: URINE APPEARANCE BLOODY (CLEAR)
[2018-07-27 19:04] LABS: URINE RBC TNTC /hpf (0-2)
[2018-07-27 21:02] VITALS: BP 124/83; PULSE 88; RESP 18; TEMP 97.9; O2SAT 97
--- NOTE | 2018-07-27 21:31 | ED PDOC ---
Physical Exam Vital Signs Temp Pulse Resp BP Pulse Ox 07/27/18 21:01 97.9 F 88 18 124/83 97 Medical Decision Making ED Course and Treatment: 07/27/18 21:30 Case endorsed to me by . Lab results pending. 07/27/18 21:56 US Pelvis, reviewed by radiologist: IMPRESSION: 1. Several tiny bilateral ovarian follicles are noted. 2. 2.1 x 1.5 cm simple right ovarian cyst. 3. A small nabothian cyst is noted on the cervical os. Electronically signed on Jul 27, 2018 9:40:33 PM EDT by: Abilio Miranda M.D., M.B.A., Certified By [employer] Trained MRI and CT Specialist 07/27/18 23:29 h/h stable from yesterday (pt recieved ivf). us neg. discussed risk benefit of blodo transfusion at this time, ptdnies syncope cp, lightheadness. prefers to see obgyn as outpt. lenghty time discussing results with pt agrees to see outpt general activities therapist. tranlator video used. - Lab Interpretations Lab Results: Urine Color Red (YELLOW) 07/27/18 18:40 Urine Appearance Bloody (CLEAR) 07/27/18 18:40 Urine pH 6.0 (4.7-8.0) 07/27/18 18:40 Ur Specific [place] >= 1.030 (1.005-1.035) 07/27/18 18:40 Urine Protein >=300 mg/dL (<30 mg/dL) H 07/27/18 18:40 Urine Glucose (UA) Negative mg/dL (NEGATIVE) 07/27/18 18:40 Urine Ketones 40 mg/dL (NEGATIVE) H 07/27/18 18:40 Urine Blood Large (NEGATIVE) H 07/27/18 18:40 Urine Nitrate Negative (NEGATIVE) 07/27/18 18:40 Urine Bilirubin Negative (NEGATIVE) 07/27/18 18:40 Urine Urobilinogen 1.0 E.U./dL (<1 E.U./dL) H 07/27/18 18:40 Ur Leukocyte Esterase Negative [place]/uL (NEGATIVE) 07/27/18 18:40 Urine RBC Tntc /hpf (0-2) H 07/27/18 18:40 Urine WBC None /hpf (0-6) 07/27/18 18:40 Ur Epithelial Cells 1 - 3 /hpf (0-5) 07/27/18 18:40 - RAD Interpretation Radiology Orders: 07/27/18 18:21 TRANSVAGINAL [US] Stat - Medication Orders Current Medication Orders: Discontinued Medications Ketorolac Tromethamine (Toradol) 60 mg IM STAT STA Stop: 07/27/18 18:22 Last Admin: 07/27/18 19:15 Dose: 60 mg MAR Pain Assessment Document 07/27/18 19:15 LA (Rec[facility] 07[facility]27[facility]18 19[id number] Pain Reassessment Is this a pain reassessment? Yes Sleep Is patient sleeping during reassessment? No Presence of Pain Presence of Pain Yes Pain Scale Used Protocol: PSCALES Pain Scale Used Numeric IM Administration Charges Document 07/27/18 19:15 LA (Rec: 07/27/18 19:16 DC [id number]) Injection Site MAR Injection Site Left Arm Charges for Administration # of IM Administrations 1 Disposition/Present on Arrival - Present on Arrival Any Indicators Present on Arrival: No History of DVT/PE: No History of Uncontrolled Diabetes: No Urinary Catheter: No History of Decub. Ulcer: No History Surgical Site Infection Following: None - Disposition Have Diagnosis and Disposition been Completed?: Yes Diagnosis: Vaginal bleeding Disposition: HOME/ ROUTINE Disposition Time: 21:00 Condition: STABLE Discharge Instructions (ExitCare): Heavy Periods (DC) Additional Instructions: you need to f/u with obgyn. return to any er with worsening. you will need further managment by specialist. Referrals: [facility] [Outside] - Follow up with primary [facility] [place] [Outside] - [facility] with [facility] [Outside] - Follow up with primary Forms: [employer] (Slovenian), WORK NOTE
[2018-07-27 21:39] LABS: BASO # 0.01 K/mm3 (0.0-2.0); BASO % 0.1 % (0.0-3.0); EOS # 0.1 (0.0-0.7); EOS % 0.9 % (1.5-5.0); HEMOGLOBIN 9.9 g/dL (12.0-16.0); LYMPH % 29.4 % (22.0-35.0); MEAN CORPUSCULAR HGB CONC 32.9 g/dl (31.0-37.0); MONO # 0.7 (0.1-0.6); MONO % 10.8 % (1.0-6.0); RBC 3.67 10^6/uL (3.5-6.1); RED CELL DISTRIBUTION WIDTH 13.2 % (11.5-14.5); WHITE BLOOD COUNT 6.8 10^3/uL (4.5-11.0)
[2018-07-27 21:54] LABS: ALB/GLOB RATIO 1.3 (1.1-1.8); ALT/SGPT 10 U/L (7-56); AST/SGOT 28 U/L (14-36); BLOOD UREA NITROGEN 13 mg/dL (7-21); CALCIUM 8.9 mg/dL (8.4-10.5); GFR NON-AFRICAN AMERICAN > 60
--- NOTE | 2018-07-28 14:16 | US ---
Date of service: 07/27/2018 HISTORY: bleeding COMPARISON: None available. TECHNIQUE: Transvaginal and transabdominal FINDINGS: UTERUS: Measures 7 x 2.9 x 3.86 cm cm. Normal in size and appearance. No fibroid or other mass lesion seen. ENDOMETRIUM: Measures 7 mm in diameter. Unremarkable. CERVIX: No cervical abnormality identified. Nabothian cysts RIGHT OVARY: Measures 3.83 x 2.46 x 2.42 cm. No solid mass. Normal flow. Ovarian cyst measuring 2.13 x 1.46 x 1.47 LEFT OVARY: Measures 3.53 x 2.25 x 3.10 cm. No solid mass. Normal flow. FREE FLUID: No significant free fluid noted. OTHER FINDINGS: The report concurs with the preliminary [facility] report IMPRESSION: Right-sided ovarian cyst measuring 2 cm.
== END 2018-07-27 22:44 | disposition home or self-care (01) ==
LOC: ED 17:29
DX: N93.9 Abnormal uterine and vaginal bleeding, unspecified (principal); E28.2 Polycystic ovarian syndrome
CPT/HCPCS: 76830; 80053; 81001; 85025; 96372; 99283; J1885